=== PATIENT | female | born 1985 ===

== ENCOUNTER 2017-06-16 07:20 | Outpatient (CLI) | payer OTHER | END 2017-06-16 08:42 | disposition home or self-care (01) | LOC: LAB 07:20 | DX: Z13.29 Encounter for screening for other suspected endocrine disorder (principal); Z13.220 Encounter for screening for lipoid disorders; A64 Unspecified sexually transmitted disease; E66.01 Morbid (severe) obesity due to excess calories; R10.13 Epigastric pain; R73.9 Hyperglycemia, unspecified; E56.9 Vitamin deficiency, unspecified ==

== ENCOUNTER 2017-06-16 08:28 | Outpatient (CLI) | payer OTHER | END 2017-06-16 08:42 | disposition home or self-care (01) | LOC: EKG 08:28 | DX: E66.01 Morbid (severe) obesity due to excess calories (principal); R00.0 Tachycardia, unspecified ==

== ENCOUNTER 2017-06-16 09:45 | Outpatient (CLI) | payer OTHER | END 2017-06-16 14:58 | disposition home or self-care (01) | LOC: RAD 09:45 → NUCLEAR 13:00 → RAD 14:58 | DX: R10.13 Epigastric pain (principal); K21.9 Gastro-esophageal reflux disease without esophagitis ==

== ENCOUNTER 2017-06-16 11:17 | Outpatient (CLI) | payer OTHER | END 2017-06-16 11:51 | disposition home or self-care (01) | LOC: NUCLEAR 11:17 | DX: R00.0 Tachycardia, unspecified (principal); E66.01 Morbid (severe) obesity due to excess calories ==

== ENCOUNTER → 2023-06-09 11:31 | Outpatient (CLI) | payer OTHER | END | disposition home or self-care (01) | LOC: PRENATAL 11:31 | PROVIDERS: ATTEND Obstetrics & Gynecology Maternal & Fetal Medicine | DX: O35.3XX0 Maternal care for (suspected) damage to fetus from viral disease in mother, not applicable or unspecified (principal); O44.00 Complete placenta previa NOS or without hemorrhage, unspecified trimester; O09.529 Supervision of elderly multigravida, unspecified trimester; O34.219 Maternal care for unspecified type scar from previous cesarean delivery; O99.342 Other mental disorders complicating pregnancy, second trimester; Z3A.19 19 weeks gestation of pregnancy ==

== ENCOUNTER 2023-07-22 13:29 | Outpatient (CLI) | payer OTHER | END 2023-07-22 13:30 | disposition home or self-care (01) | LOC: PRENATAL 13:29 | PROVIDERS: ATTEND Obstetrics & Gynecology Maternal & Fetal Medicine | DX: O26.849 Uterine size-date discrepancy, unspecified trimester (principal); O44.00 Complete placenta previa NOS or without hemorrhage, unspecified trimester; O09.529 Supervision of elderly multigravida, unspecified trimester; O34.219 Maternal care for unspecified type scar from previous cesarean delivery; O99.343 Other mental disorders complicating pregnancy, third trimester; Z3A.25 25 weeks gestation of pregnancy ==